=== PATIENT | male | born 1950 | race American Indian/Alaskan Native ===

== ENCOUNTER 2017-11-09 21:54 | Inpatient (IN) | payer MEDICARE, BC ==
[2017-11-09 22:00] VITALS: BMI 21.1
[2017-11-09] MEDS ORDERED: Sodium Chloride 0.9% 1,000 ML IV STA (22:18)
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
[2017-11-09 22:41] LABS: BASO # 0.01 K/mm3 (0.0-2.0); BASO % 0.2 % (0.0-3.0); EOS # 0.1 (0.0-0.7); EOS % 1.2 % (1.5-5.0); GRAN # 2.95 (1.4-6.5); GRAN % 45.8 % (50.0-68.0); HEMOGLOBIN 8.6 g/dL (14.0-18.0); LYMPH # 2.9 (1.2-3.4); LYMPH % 44.9 % (22.0-35.0); MEAN CELL VOLUME 94.4 fl (80.0-105.0); MEAN CORPUSCULAR HEMOGLOBIN 31.9 pg (25.0-35.0); MEAN CORPUSCULAR HGB CONC 33.7 g/dl (31.0-37.0); MEAN PLATELET VOLUME 8.7 fl (7.0-11.0); MONO # 0.5 (0.1-0.6); MONO % 7.9 % (1.0-6.0); RBC 2.7 10^6/uL (3.5-6.1); RED CELL DISTRIBUTION WIDTH 14.9 % (11.5-14.5); WHITE BLOOD COUNT 6.4 10^3/ul (4.5-11.0)
[2017-11-09 22:52] LABS: ALB/GLOB RATIO 1.3 (1.1-1.8); ALBUMIN 3.3 g/dL (3.0-4.8); CALCIUM 8.3 mg/dL (8.4-10.5); GFR AFRICAN-AMERICAN > 60; GFR NON-AFRICAN AMERICAN > 60; INR 1.09 (0.93-1.08); LIPASE 55 U/L (23-300); PARTIAL THROMBOPLASTIN TIME 21.8 Seconds (25.1-36.5); PROTHROMBIN TIME 12.4 SECONDS (9.4-12.5)
[2017-11-09 22:55] LABS: ALT/SGPT 21 U/L (7-56); AST/SGOT 26 U/L (17-59); BLOOD UREA NITROGEN 26 mg/dL (7-21)
[2017-11-09 23:03] LABS: TROPONIN I < 0.01 ng/mL
[2017-11-10] MEDS ORDERED: Iohexol 350 MG/100 ML VIAL ONE
--- NOTE | 2017-11-10 00:36 | CT ---
EXAM: CT Head Without Intravenous Contrast CLINICAL HISTORY: 67 years old, male; Signs and symptoms; Syncope and collapse TECHNIQUE: Axial computed tomography images of the head/brain without intravenous contrast. All CT scans at this facility use one or more dose reduction techniques, viz.: automated exposure control; ma/kV adjustment per patient size (including targeted exams where dose is matched to indication; i.e. head); or iterative reconstruction technique. Coronal and sagittal reformatted images were created and reviewed. COMPARISON: No relevant prior studies available. FINDINGS: Brain: Unremarkable. No hemorrhage. No significant white matter disease. No edema. Ventricles: Unremarkable. No ventriculomegaly. Bones/joints: Unremarkable. No acute fracture. Soft tissues: Unremarkable. Sinuses: There is diffuse mucoperiosteal thickening in the maxillary sinuses, consistent with chronic sinusitis. Mastoid air cells: Unremarkable as visualized. No mastoid effusion. IMPRESSION: No evidence of an acute intracranial abnormality.
--- NOTE | 2017-11-10 01:04 | CT ---
EXAM: CT Abdomen and Pelvis With Intravenous Contrast CLINICAL HISTORY: 67 years old, male; Signs and symptoms; Other: Gi bleed, syncope TECHNIQUE: Axial computed tomography images of the abdomen and pelvis with intravenous contrast. All CT scans at this facility use one or more dose reduction techniques, viz.: automated exposure control; ma/kV adjustment per patient size (including targeted exams where dose is matched to indication; i.e. head); or iterative reconstruction technique. Coronal and sagittal reformatted images were created and reviewed. CONTRAST: 100 mL of [id number] administered intravenously. COMPARISON: No relevant prior studies available. FINDINGS: Lung bases: Unremarkable. No mass. No consolidation. ABDOMEN: Liver: Unremarkable. No mass. Gallbladder and bile ducts: Unremarkable. No calcified stones. Mild central intrahepatic and common bile duct dilation. The common bile duct measures 7 mm. No common bile duct stone. Pancreas: Unremarkable. No mass. The pancreatic duct is mildly dilated measuring 4 mm. Spleen: Unremarkable. No splenomegaly. Adrenals: Unremarkable. No mass. Kidneys and ureters: Multiple surgical clips in the right upper quadrant adjacent to the kidney. There is a 2 cm cyst in the lower pole of the left kidney. There is a 8mm right renal hypodensity that cannot be further characterized on the current examination. No hydronephrosis. Stomach and bowel: The sigmoid colon is mildly thick walled probably secondary to nondistention. The rectum is mildly thick walled. There is no evidence of intestinal obstruction. There is a moderate amount of retained stool in the colon. PELVIS: Appendix: A normal appendix is identified. Bladder: Unremarkable. No mass. Reproductive: The right seminal vesicle is prominent compared to left. There is mild haziness of the adjacent pelvic fat. ABDOMEN and PELVIS: Intraperitoneal space: Unremarkable. No free air. No significant fluid collection. Bones/joints: No acute fracture. No dislocation. Soft tissues: Unremarkable. Vasculature: The vasculature demonstrates diffuse moderate atherosclerotic calcification. No abdominal aortic aneurysm. Lymph nodes: Unremarkable. No enlarged lymph nodes. IMPRESSION: Mildly thick walled rectum. Given correlate clinically to exclude mild proctitis. Asymmetrically prominent right seminal vesicle with mild haziness of the adjacent fat. Possible infectious/inflammatory process. Clinical correlation recommended. Left renal cyst. Too small to characterize low-density right renal lesion. No followup necessary.
[2017-11-10] MEDS: Pantoprazole 40 mg EC Tab PO SCH (06:26)
[2017-11-10 08:20] LABS: HEMOGLOBIN 9.4 g/dL (14.0-18.0); MEAN CELL VOLUME 91.4 fl (80.0-105.0); MEAN CORPUSCULAR HEMOGLOBIN 30.9 pg (25.0-35.0); MEAN CORPUSCULAR HGB CONC 33.8 g/dl (31.0-37.0); MEAN PLATELET VOLUME 8.9 fl (7.0-11.0); RBC 3.04 10^6/uL (3.5-6.1); RED CELL DISTRIBUTION WIDTH 14.8 % (11.5-14.5); WHITE BLOOD COUNT 6.2 10^3/ul (4.5-11.0)
[2017-11-10 08:57] LABS: IRON 134 ug/dL (45-180)
--- NOTE | 2017-11-10 09:00 | RAD ---
HISTORY: abd pain COMPARISON: No prior. FINDINGS: LUNGS: No active pulmonary disease. PLEURA: No significant pleural effusion identified, no pneumothorax apparent. CARDIOVASCULAR: Normal. OSSEOUS STRUCTURES: No significant abnormalities. VISUALIZED UPPER ABDOMEN: Normal. OTHER FINDINGS: None. IMPRESSION: No active disease.
[2017-11-10 09:15] LABS: % IRON SATURATION 46 % (20-55); TOTAL IRON BINDING CAPACITY 293 ug/dL (261-462)
[2017-11-10 09:30] LABS: FREE T4 1.07 ng/dL (0.78-2.19)
--- NOTE | 2017-11-10 10:01 | CARD ---
APPROVED REPORT EKG Measurement Heart [id number] <Conclusion> Normal sinus rhythm Nonspecific T wave abnormality Prolonged QT
[2017-11-10] MEDS: levoFLOXacin 500 mg in D5W 500 MG/100 ML BAG IVPB SCH (10:10)
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
[2017-11-11 01:19] VITALS: RESP 18; O2SAT 100
[2017-11-11] MEDS: Pantoprazole 40 mg EC Tab PO SCH (05:34)
[2017-11-11 07:16] LABS: BASO # 0.02 K/mm3 (0.0-2.0); BASO % 0.4 % (0.0-3.0); EOS # 0.1 (0.0-0.7); EOS % 1.7 % (1.5-5.0); GRAN # 2.28 (1.4-6.5); GRAN % 49.8 % (50.0-68.0); HEMOGLOBIN 9.4 g/dL (14.0-18.0); LYMPH # 1.9 (1.2-3.4); LYMPH % 41.3 % (22.0-35.0); MEAN CELL VOLUME 91.5 fl (80.0-105.0); MEAN CORPUSCULAR HGB CONC 34.9 g/dl (31.0-37.0); MEAN PLATELET VOLUME 8.5 fl (7.0-11.0); MONO # 0.3 (0.1-0.6); MONO % 6.8 % (1.0-6.0); RBC 2.94 10^6/uL (3.5-6.1); RED CELL DISTRIBUTION WIDTH 15.2 % (11.5-14.5); WHITE BLOOD COUNT 4.6 10^3/ul (4.5-11.0)
[2017-11-11 07:20] LABS: ALB/GLOB RATIO 1.3 (1.1-1.8); ALBUMIN 3.3 g/dL (3.0-4.8); ALT/SGPT 29 U/L (7-56); AST/SGOT 18 U/L (17-59); BLOOD UREA NITROGEN 19 mg/dL (7-21); CALCIUM 8.9 mg/dL (8.4-10.5); GFR AFRICAN-AMERICAN > 60; GFR NON-AFRICAN AMERICAN > 60
[2017-11-11 08:10] VITALS: BP 110/75; PULSE 64; TEMP 97.9
[2017-11-11] MEDS: levoFLOXacin 500 mg in D5W 500 MG/100 ML BAG IVPB SCH (09:20)
--- NOTE | 2017-11-11 10:18 | CARD ---
APPROVED REPORT EXAM: Two-dimensional and M-mode echocardiogram with Doppler and color Doppler. Other Information Quality : FairRhythm : INDICATION Syncope 2D DIMENSIONS IVSd1.1 (0.7-1.1cm)LVDd4.2 (3.9-5.9cm) PWd1.2 (0.7-1.1cm)LVDs2.9 (2.5-4.0cm) FS (%) 31.0 %LVEF (%)59.0 (>50%) M-Mode DIMENSIONS Left Atrium (MM)3.20 (2.5-4.0cm)Aortic Root3.10 (2.2-3.7cm) Aortic Cusp Exc.1.90 (1.5-2.0cm) Aortic Valve AoV Peak Sppepqtk718.0cm/s Mitral Valve MV E Jstdjhyp12.3cm/sMV A Obuwjdcx47.1cm/sE/A ratio0.8 TDI Lateral E' Peak V6.04cm/sMedial E' Peak V7.02cm/sE/Lateral E'8.7 E/Medial E'7.5 Tricuspid Valve TR Peak [id number]/sRAP QBIZVUCB00vmZoEP Peak Gr.31mmHg BKBH31gkSd LEFT VENTRICLE The left ventricle is normal size. There is normal left ventricular wall thickness. The left ventricular function is normal. The left ventricular ejection fraction is within the normal range. There is normal LV segmental wall motion. RIGHT VENTRICLE The right ventricle is normal size. ATRIA The left atrium size is normal. The right atrium size is normal. The interatrial septum is intact with no evidence for an atrial septal defect. AORTIC VALVE The aortic valve is normal in structure. MITRAL VALVE The mitral valve is normal in structure. Mitral regurgitation is trace. TRICUSPID VALVE The tricuspid valve is normal in structure. There is trace tricuspid regurgitation. PULMONIC VALVE The pulmonic valve is not well visualized. GREAT VESSELS The aortic root is normal in size. PERICARDIAL EFFUSION There is no pericardial effusion. <Conclusion> The left ventricle is normal size. There is normal left ventricular wall thickness. The left ventricular function is normal.
--- NOTE | 2017-11-11 18:22 | US ---
PROCEDURE: Bilateral carotid artery duplex ultrasound HISTORY: Carotid stenosis PHYSICIAN(S): Roberto Jacobs MD. TECHNIQUE: Duplex sonography and color-flow Doppler were used to evaluate the carotid bifurcations and limited segments of the vertebral arteries bilaterally. FINDINGS: There is moderate smooth heterogeneous plaque noted at the carotid bifurcations bilaterally. The peak systolic velocity in the proximal right internal carotid artery is 181 cm/sec. This corresponds to a 60-79 percent proximal right ICA stenosis. Normal systolic velocities are noted in the proximal right external carotid artery. There is antegrade flow in the right vertebral artery. The peak systolic velocity in the proximal left internal carotid artery is 156 cm/sec. This corresponds to a 60-79% proximal left ICA stenosis. Normal systolic velocities are noted in the proximal left external carotid artery. There is antegrade flow in the left vertebral artery. IMPRESSION: 1. Bilateral 60-79% proximal ICA stenoses. 2. Antegrade flow in both vertebral arteries.
--- NOTE | 2017-11-12 07:03 | DS ---
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 He was with his daughter in dinner. When he went to pay for the food, he felt extremely dizzy, sat on the chair. Family called ambulance and he was brought to the emergency room. He found to have a hemoglobin of 8.6. He was not aware of any issue. He was given one blood transfusion. He seems to be doing well. He had CT scan of the abdomen and pelvis done that showed thickening of the rectum. Patient was recommended to have endoscopy and colonoscopy done. Patient states he does not want to stay anymore to have further workup done. So he said he will do this workup when he was home in [place]. He was provided with CT scan of the chest. Reportedly, he was given serial hemoglobin and blood work. He had a discussion with patient's Kenna also and to make sure that he gets his workup done later on and he must go for endoscopy and colonoscopy. PHYSICAL EXAMINATION: GENERAL: Today, he is awake, alert, oriented, and communicative. VITAL SIGNS: He is afebrile, pulse 64, respirations 18, blood pressure 110/75. LUNGS: Bilateral good airflow. No rhonchi or crackles. HEART: S1 and S2, audible. ABDOMEN: Soft, nontender, no rebound, no guarding. NEUROLOGICAL: He is awake, alert, oriented, communicative, ambulatory. LABORATORY EXAM: WBC is 4.6, hemoglobin 9.4, hematocrit 26.9, platelets of 180. Chemistry: Sodium 142, potassium 3.9, chloride 107, CO2 of 26, BUN 19, creatinine 1, blood sugar of 89. ASSESSMENT: 1. Symptomatic anemia, etiology is still unclear. 2. Rectal wall thickening. 3. Mild renal insufficiency. PLAN: Patient received . Hemoglobin is stable. He needs outpatient endoscopy and colonoscopy, although blood work was done and made sure patient will follow up with GI and his primary care doctor. Patient's CAT scan was found to have epididymitis. He was given a course of Levaquin. He will finish within 7 days and he will follow with . Jayashree Braswell MD
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
== END 2017-11-11 13:53 | disposition home or self-care (01) | DRG 812 ==
LOC: ED 21:54 → ERH 11-10 01:37 → 2RNO 11-10 02:16 → 3RNO 11-10 23:56
PROVIDERS: ADMIT Internal Medicine; ATTEND Internal Medicine
PROC: 30233N1 Transfusion of Nonautologous Red Blood Cells into Peripheral Vein, Percutaneous Approach (ICD-10-PCS; principal; 2017-11-10)
DX: D64.9 Anemia, unspecified (principal); N28.1 Cyst of kidney, acquired; R04.0 Epistaxis; K62.89 Other specified diseases of anus and rectum; N45.1 Epididymitis; Z90.5 Acquired absence of kidney; Z88.0 Allergy status to penicillin; Z87.891 Personal history of nicotine dependence